=== PATIENT | male | born 2000 | race Caucasian/White ===

== ENCOUNTER 2021-06-09 12:37 | Inpatient (IN) | payer SELFPAY ==
[2021-06-09 12:49] VITALS: PULSE 85; RESP 18; TEMP 36.3; O2SAT 98; BMI 20.9
[2021-06-09 13:45] LABS: Basophils # 0.1 10^3/uL (0.0-0.1); Basophils % 0.7 %; Eosinophils % 0.4 %; Hematocrit 49.7 % (42.0-52.0); Hemoglobin 16.6 g/dL (11.7-16.6); Lymphocytes # 1.4 10^3/uL (0.8-4.8); Lymphocytes % 13.3 %; Mean Corpuscular HGB Conc 33.4 g/dL (30.0-36.0); Mean Corpuscular Hemoglobin 30.5 pg (28.0-34.0); Mean Corpuscular Volume 91.2 fl (80-94); Mean Platelet Volume 10.1 fL (7.4-10.4); Monocytes # 0.8 10^3/uL (0.2-0.9); Monocytes % 7.5 %; Neutrophils # 8.05 10^3/uL (1.8-7.7); Neutrophils % 77.8 %; Nucleated Red Blood Cells % 0 %; Platelet Count 321 10^3/cmm (130-400); Red Blood Count 5.45 10^6/uL (4.1-5.3); Red Cell Distribution Width 12.8 % (12.1-15.1); White Blood Count 10.3 10^3/uL (4.0-10.0)
--- NOTE | 2021-06-09 14:08 | ED_ITS ---
HPI - Psych General: Chief Complaint: Psychiatric Symptoms Stated Complaint: SI Time Seen by Provider: 06/09/21 13:10 History of Present Illness: HPI Narrative: 20-year-old male presents emergency room with superficial lacerations on the left anterior forearm. He said he was drinking heavily last night had intent to harm himself when he cut himself did bleed some but is not break through the full-thickness of the skin does not require sutures. He has had multiple episodes of cutting in the past and is intermittently had suicidal ideation for some time he is never been hospitalized for is not currently on any medications. He denies any use of illicit drugs. Issue today was precipitated by his girlfriend having an ectopic which made him more depressed. MD complaint: suicidal ideation and feels depressed Onset (ago): hour(s) Duration: constant History of same: Yes Relieving factors: none Exacerbating factors: none Associated psychiatric symptoms: none Associated symptoms: Reports depression and suicidal ideation; Deny auditory hallucinations, visual hallucinations, delusions, homicidal ideation or racing thoughts Treatments prior to arrival: none If self harm: admits thoughts of self harm, has plan and has acted on plan Review of Systems Const: Denies: fever(s), chills, body aches, change in appetite, fatigue or malaise ENMT: Denies: throat pain, ear or mastoid pain, nasal discharge or nasal congestion Card: Denies: chest pain, edema, dyspnea on exertion or orthopnea Resp: Denies: dyspnea, productive cough or non-productive cough GI: Denies: abdominal pain, nausea, vomiting, hematemesis, coffee ground emesis, diarrhea, constipation, bloating, hematochezia or melena : Denies: flank pain, dysuria, urinary frequency or urinary urgency Skin/Breast: Denies: rash or pruritus Psych: Reports: depression and suicidal ideation; Denies: visual hallucinations, auditory hallucinations or homicidal ideation Physical Exam Const: COMMON NORMALS: no acute distress GENERAL APPEARANCE: cooperative and comfortable ORIENTATION/CONSCIOUSNESS: Yes awake, Yes oriented to person, Yes oriented to place and Yes oriented to time HENMT: COMMON NORMALS: normocephalic, atraumatic and hearing grossly normal bilaterally HEAD & SCALP: normocephalic and atraumatic Neck/C-Spine: COMMON NORMALS: no JVD Lymph: LYMPHATIC: no lymphadenopathy noted and no lymphedema noted Resp: COMMON NORMALS: normal respiratory effort, No retractions, No use of accessory muscles and clear to auscultation bilaterally AUSCULTATION: clear to auscultation bilaterally Cardio: COMMON NORMALS: no JVD, regular rate, regular rhythm and No murmurs present (Cardio) RATE: regular rate RHYTHM: regular rhythm GI: COMMON NORMALS: Soft to palpation and No hepatosplenomegaly present AUSCULTATION: Yes normoactive bowel sounds PALPATION: Yes Soft to palpation, No Tenderness to palpation present (GI), No Guarding due to palpation present (GI) and Yes No hepatosplenomegaly present Extremity: COMMON NORMALS: normal to inspection, capillary refill normal, no clubbing, cyanosis or edema, no calf tenderness and no pedal edema Neuro: SENSORIUM/ORIENTATION: Yes oriented to person, Yes oriented to place and Yes oriented to time Psych: THOUGHT CONTENT: No delusions Skin: COMMON NORMALS: no rashes or lesions noted GENERAL SKIN EXAM: no rashes or lesions noted Course Vital Signs: Vital signs: Vital Signs Temperature 97.4 F L 06/09/21 12:49 Pulse Rate 85 06/09/21 12:49 Respiratory Rate 18 06/09/21 12:49 Pulse Oximetry 98 06/09/21 12:49 MDM - Psych MDM Narrative: Medical decision making narrative: Superficial abrasions to the left forearm scars throughout the forearms from previous cutting. No gaping wounds the attempted incision by the patient from last night is not full- thickness not amenable to sutures. Discussed with Dr. Garcia will admit for suicidal ideation. Lab Data: Labs: Lab Results 06/09/21 06/09/21 06/09/21 Range/Units 13:30 13:30 13:30 WBC 10.3 H (4.0-10.0) 10^3/ uL RBC 5.45 H (4.1-5.3) 10^6/u L Hgb 16.6 (11.7-16.6) g/dL Hct 49.7 (42.0-52.0) % MCV 91.2 (80-94) fl MCH 30.5 (28.0-34.0) pg MCHC 33.4 (30.0-36.0) g/dL RDW 12.8 (12.1-15.1) % Plt Count 321 (130-400) 10^3/c mm MPV 10.1 (7.4-10.4) fL Neut % (Auto) 77.8 % Lymph % (Auto) 13.3 % Williamson % (Auto) 7.5 % Eos % (Auto) 0.4 % Baso % (Auto) 0.7 % Neut # (Auto) 8.05 H (1.8-7.7) 10^3/u L Lymph # (Auto) 1.4 (0.8-4.8) 10^3/u L Williamson # (Auto) 0.8 (0.2-0.9) 10^3/u L Eos # (Auto) 0.0 (0.0-0.8) 10^3/u L Baso # (Auto) 0.1 (0.0-0.1) 10^3/u L Nucleated RBC % (a uto) 0 % Nucleated RBCs # 0.0 /100WBC Sodium 140 (136-145) mmol/L Potassium 4.0 (3.5-5.1) mmol/L Chloride 103 (98-107) mmol/L Carbon Dioxide 27 (22-29) mmol/L Anion Gap 14.0 (5-19) BUN 7 (6-20) mg/dL Creatinine 0.8 (0.7-1.2) mg/dL GFR Calculation 122.0 (90-130) mL/min Glucose 90 (65-115) mg/dL Calculated Osmolal ity 288 (285-295) mOsm/k g Calcium 9.6 (8.5-10.5) mg/dL Total Bilirubin 0.3 (0.15-1.2) mg/dL AST 14 (0-40) U/L ALT 8 (0-41) U/L Alkaline Phosphata se 160 H (40-130) IU/L Total Protein 7.6 (6.6-8.7) g/dL Albumin 4.7 (3.5-5.2) g/dL Globulin 2.9 (1.3-4.6) g/dL Urine Color Straw (Yellow) Urine Appearance Hazy A (CLEAR) Urine pH 8 H (5-7) Ur Specific Gravit y 1.015 (1.005-1.030) Urine Protein Neg (Negative) Urine Glucose (UA) Norm (Normal) Urine Ketones Negative (Negative) Urine Blood Neg (Negative) Urine Nitrate Negative (Negative) Urine Bilirubin Neg (Negative) Prot Sulfosalicyli c Acd Negative (Negative) Urine Urobilinogen Norm (Negative) mg/dL Ur Leukocyte Arianna ase Negative (Negative) Urine RBC None (0-2) /hpf Urine WBC 0-4 H (0-5) /hpf Ur Squamous Epith Cells None (0-5) /hpf Amorphous Sediment 3+ /hpf Urine Bacteria Trace (NONE) /hpf Salicylates < 0.3 L (3-10) mg/dL Urine Opiates Scre en (Negative) ng/mL Acetaminophen < 5.0 L (10-30) ug/mL Ur Barbiturates Sc reen (Negative) ng/mL Ur Phencyclidine S crn (Negative) ng/mL Ur Amphetamines Sc reen (Negative) ng/mL U Benzodiazepines Scrn (Negative) ng/mL Urine Cocaine Scre en (Negative) ng/mL U Marijuana (THC) Screen (Negative) ng/mL 06/09/21 Range/Units 13:30 WBC (4.0-10.0) 10^3/ uL RBC (4.1-5.3) 10^6/u L Hgb (11.7-16.6) g/dL Hct (42.0-52.0) % MCV (80-94) fl MCH (28.0-34.0) pg MCHC (30.0-36.0) g/dL RDW (12.1-15.1) % Plt Count (130-400) 10^3/c mm MPV (7.4-10.4) fL Neut % (Auto) % Lymph % (Auto) % Williamson % (Auto) % Eos % (Auto) % Baso % (Auto) % Neut # (Auto) (1.8-7.7) 10^3/u L Lymph # (Auto) (0.8-4.8) 10^3/u L Williamson # (Auto) (0.2-0.9) 10^3/u L Eos # (Auto) (0.0-0.8) 10^3/u L Baso # (Auto) (0.0-0.1) 10^3/u L Nucleated RBC % (a uto) % Nucleated RBCs # /100WBC Sodium (136-145) mmol/L Potassium (3.5-5.1) mmol/L Chloride (98-107) mmol/L Carbon Dioxide (22-29) mmol/L Anion Gap (5-19) BUN (6-20) mg/dL Creatinine (0.7-1.2) mg/dL GFR Calculation (90-130) mL/min Glucose (65-115) mg/dL Calculated Osmolal ity (285-295) mOsm/k g Calcium (8.5-10.5) mg/dL Total Bilirubin (0.15-1.2) mg/dL AST (0-40) U/L ALT (0-41) U/L Alkaline Phosphata se (40-130) IU/L Total Protein (6.6-8.7) g/dL Albumin (3.5-5.2) g/dL Globulin (1.3-4.6) g/dL Urine Color (Yellow) Urine Appearance (CLEAR) Urine pH (5-7) Ur Specific Gravit y (1.005-1.030) Urine Protein (Negative) Urine Glucose (UA) (Normal) Urine Ketones (Negative) Urine Blood (Negative) Urine Nitrate (Negative) Urine Bilirubin (Negative) Prot Sulfosalicyli c Acd (Negative) Urine Urobilinogen (Negative) mg/dL Ur Leukocyte Arianna ase (Negative) Urine RBC (0-2) /hpf Urine WBC (0-5) /hpf Ur Squamous Epith Cells (0-5) /hpf Amorphous Sediment /hpf Urine Bacteria (NONE) /hpf Salicylates (3-10) mg/dL Urine Opiates Scre en Negative (Negative) ng/mL Acetaminophen (10-30) ug/mL Ur Barbiturates Sc reen Negative (Negative) ng/mL Ur Phencyclidine S crn Negative (Negative) ng/mL Ur Amphetamines Sc reen Negative (Negative) ng/mL U Benzodiazepines Scrn Negative (Negative) ng/mL Urine Cocaine Scre en Negative (Negative) ng/mL U Marijuana (THC) Screen Positive H (Negative) ng/mL Discharge Plan Discharge Patient Disposition: Admitted As Inpatient Admit Provider: Walter Garcia Clinical Impression: Suicidal ideation, Depression Condition: Stable Coding Level of Care Code ED Card Scraper for Chg Fwd Exam Comprehensive
[2021-06-09 14:12] LABS: Amphetamines Screen Urine Negative (Negative); Barbiturates Screen Urine Negative (Negative); Benzodiazepines Screen Urine Negative (Negative); Cocaine Screen Urine Negative (Negative); Opiate Screen Urine Negative (Negative); PCP Screen Urine Negative (Negative); THC Screen Urine Positive (Negative)
[2021-06-09 14:13] LABS: Add Urine Microscopic? YES; Alanine Aminotransferase 8 U/L (0-41); Albumin Level 4.7 g/dL (3.5-5.2); Alkaline Phosphatase 160 IU/L (40-130); Aspartate Amino Transferase 14 U/L (0-40); Bacteria Urine TRACE /hpf; Bilirubin Urine Neg (Negative); Blood Urea Nitrogen 7 mg/dL (6-20); Blood Urine Neg (Negative); Calcium 9.6 mg/dL (8.5-10.5); Carbon Dioxide 27 mmol/L (22-29); Chloride 103 mmol/L (98-107); Creatinine Clr Calc Pharmacy 149.5673; Globulin 2.9 g/dL (1.3-4.6); Glucose 90 mg/dL (65-115); Glucose Urine UA Norm (Normal); Ketones Urine Negative (Negative); Leukocyte Esterase Urine Negative (Negative); Nitrate Urine Negative (Negative); Osmolality Calculated 288 mOsm/kg (285-295); Protein Urine Neg (Negative); Sodium 140 mmol/L (136-145); Specific Gravity, Urine 1.015 (1.005-1.030); Sulfosalicylic Acid Urine Negative (Negative); Total Bilirubin 0.3 mg/dL (0.15-1.2); Total Protein 7.6 g/dL (6.6-8.7); Urine Appearance Hazy (CLEAR); Urine Color Straw (Yellow); Urobilinogen Urine Norm (Negative); WBC Urine 0-4 /hpf (0-5); pH Urine 8 (5-7)
[2021-06-09 14:14] LABS: Add Urine Culture? No; Amorphous Sediment Urine 3+ /hpf
[2021-06-09 14:15] LABS: Acetaminophen < 5.0 ug/mL (10-30); Salicylate < 0.3 mg/dL (3-10)
[2021-06-09 15:55] VITALS: BP 171/107; PULSE 86; RESP 18; TEMP 36.2; O2SAT 98
[2021-06-09 16:53] VITALS: BP 171/107
[2021-06-09] MEDS: cloNIDine 0.1 mg Tablet PO (16:53)
[2021-06-09 20:55] VITALS: BP 137/84; PULSE 73; RESP 17; TEMP 36.4; O2SAT 99
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
[2021-06-10 06:00] VITALS: BP 132/93; PULSE 75; RESP 18; TEMP 36.6; O2SAT 99
[2021-06-10 10:18] VITALS: BP 132/93
[2021-06-10] MEDS: cloNIDine 0.1 mg Tablet PO ×2 (10:18→17:37)
[2021-06-10 14:00] VITALS: BP 143/95; PULSE 74; RESP 18; TEMP 36.3; O2SAT 99
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
[2021-06-10 17:37] VITALS: BP 143/95
[2021-06-10] MEDS: fluoxetine 20 mg Capsule PO (18:15)
[2021-06-10] MEDS: lamoTRIgine 25 mg Tablet PO (18:15)
[2021-06-10 22:00] VITALS: BP 130/84; PULSE 111; RESP 18; TEMP 36.7; O2SAT 96
[2021-06-11 06:00] VITALS: BP 131/79; PULSE 84; RESP 18; TEMP 36.9; O2SAT 97
[2021-06-11] MEDS: cloNIDine 0.1 mg Tablet PO ×2 (08:56→21:17)
[2021-06-11] MEDS: lamoTRIgine 25 mg Tablet PO (08:56)
[2021-06-11] MEDS: fluoxetine 20 mg Capsule PO (08:56)
--- NOTE | 2021-06-11 10:09 | P.PN_ITS ---
Subjective NPU Subjective: Interval history: I met with the patient in his room, and he began with rapid speech about his girlfriend and his father being a good support system. He says that he and his girlfriend rarely argue and that after discharge he will return to the home they share. He states that the Prozac and Lamictal that he was given yesterday caused him to have trouble sleeping. He says that he believes the medications will help him and that after discharge he plans to utilize counseling services and continue his medications. He says he would like to be out by so he can return to work but says he is committed to staying until the physician believes he is ready to go home. <ENEDINA Gomez STDNT - Last Filed: 06/11/21 11:37> Interval history: Pt tells me a slightly different story. He says that he and his girlfriend have conflicts, but the are working it out. He says that he slept off and on last night, but says he slept much of the day, so he might not have been as tired. Mood is better than it has been in a while. Denies urge to or kill himself. No medication side effects. <Walter Garcia MD - Last Filed: 06/12/21 08:08> Mental Status Exam MSE Comments: I met with the patient in his room, and he was dressed in hospital scrubs and appropriately groomed. He was calm, cooperative, interactive, and made good eye contact. No psychomotor agitation or retardation Speech is still pressured with normal volume and good articulation. Alert, oriented to person, place, time, situation Attention and concentration were intact to exam Memory is adequate for the interview Mood is fine . Affect is anxious. Thought process is logical and goal-directed. Thought content: The patient denies suicidal ideation, homicidal ideation, paranoia, and AVH. Insight and judgment are fair. Impulse control continues to be impaired. <ENEDINA Gomez STDNT - Last Filed: 06/11/21 11:37> Agree with above. <Walter Garcia MD - Last Filed: 06/12/21 08:08> Vitals/I&O/Wt Last Vital Signs Temp 98.4 F 06/11/21 06:00 Pulse 84 06/11/21 06:00 Resp 18 06/11/21 06:00 BP 131/79 06/11/21 06:00 Pulse Ox 97 06/11/21 06:00 <ENEDINA Gomez STDNT - Last Filed: 06/11/21 11:37> Weight last 48 hrs Weight 68.039 kg <Matias Grant MED STDNT - Last Filed: 06/11/21 11:37> Data NPU : 06/09/21 13:30 06/09/21 13:30 <Matias Grant MED STDNT - Last Filed: 06/11/21 11:37> A&P Assessment and plan (1) Alcohol use disorder, mild, abuse: Status: Acute <Matias Grant MED STDNT - Last Filed: 06/11/21 11:37> (2) Suicidal ideation: Status: Acute <Matias Grant MED STDNT - Last Filed: 06/11/21 11:37> (3) Depression: Status: Acute <Matias Grant MED STDNT - Last Filed: 06/11/21 11:37> Additional A&P Information Assessment and plan 1)Depression Continue Prozac 20mg and Lamictal 25mg 2)Suicidal ideation 3)Alcohol use disorder, mild, abuse Best Burch is a 20-year-old male who presented through the ER for a deep vertical cut to the left forearm and suicidal ideation. RECOMMENDATION AND PLAN: 1. We will continue Prozac and Lamictal. 2. Continue every 15 minute checks for safety. 3. Encourage individual, group and milieu therapies. 4. Encourage sober living treatment after discharge at the highest level of care to which he is willing to commit. <ENEDINA Gomez STDNT - Last Filed: 06/11/21 11:37> Agree with Assessment and Plan. <Walter Garcia MD - Last Filed: 06/12/21 08:08> Involuntary Hold Information 96 Hour Hold: 96 Hour Involuntary Admission: No <ENEDINA Gomez STDNT - Last Filed: 06/11/21 11:37> Attestations NPU Medical Necessity Statement*: . <Matias Grant MED STDNT - Last Filed: 06/11/21 11:37> Psychiatric hospitalization is medically necessary to prevent access to lethal means, to reevaluate medication, and to coordinate a safe discharge. May discharge tomorrow if he continues to make the same progress and is still tolerating medication. Will need follow up through [facility]. <Walter Garcia MD - Last Filed: 06/12/21 08:08> Coding Level of Care Code Acute Air Crew Member for [facility] Fwd Diagnoses Alcohol use disorder, mild, abuse F10.10 Suicidal ideation R45.851 Depression F32.9
[2021-06-11 14:00] VITALS: BP 143/75; PULSE 86; RESP 18; TEMP 36.3; O2SAT 99
[2021-06-11 19:56] VITALS: BP 132/85; PULSE 70; RESP 20; TEMP 36.9; O2SAT 100
[2021-06-11 21:17] VITALS: BP 132/85
[2021-06-12 06:00] VITALS: BP 121/80; PULSE 82; RESP 17; TEMP 36.6; O2SAT 99
[2021-06-12] MEDS: cloNIDine 0.1 mg Tablet PO (08:30)
[2021-06-12] MEDS: fluoxetine 20 mg Capsule PO (08:30)
[2021-06-12] MEDS: lamoTRIgine 25 mg Tablet PO (08:30)
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
[2021-06-12 13:21] VITALS: BP 121/80; PULSE 82; RESP 17; TEMP 36.6; O2SAT 99
[2021-06-12 13:52] VITALS: BP 139/89; PULSE 66; RESP 20; TEMP 36.7; O2SAT 99
== END 2021-06-12 15:34 | disposition home or self-care (01) | DRG 885 ==
LOC: ER 14:10 → NP 06-10 08:33
PROVIDERS: Admitting Provider Psychiatry & Neurology Child & Adolescent Psychiatry; Emergency Provider Family Medicine; PCP Pediatrics; Visit Provider Psychiatry & Neurology Child & Adolescent Psychiatry
DX: F31.9 Bipolar disorder, unspecified (principal); R45.851 Suicidal ideations; F12.90 Cannabis use, unspecified, uncomplicated; Z81.8 Family history of other mental and behavioral disorders; F10.10 Alcohol abuse, uncomplicated; F41.9 Anxiety disorder, unspecified; F17.210 Nicotine dependence, cigarettes, uncomplicated
CPT/HCPCS: 80053; 80306; 80307; 81001; 85025; 99285

== ENCOUNTER → 2021-06-23 15:55 | Outpatient (BNVA) | payer OTHER, SELFPAY | PROVIDERS: PCP Pediatrics; Visit Provider Nurse Practitioner Family | DX: Z20.822 Contact with and (suspected) exposure to COVID-19 (principal) | CPT/HCPCS: 87635 ==

== ENCOUNTER 2023-09-16 15:22 | Emergency (ER) | payer SELFPAY ==
[2023-09-16 15:28] VITALS: BP 185/83; PULSE 93; RESP 18; TEMP 36.7; O2SAT 100; BMI 25.7
--- NOTE | 2023-09-16 15:44 | ED_ITS ---
HPI - Abdominal Pain 2 General: Chief Complaint: Abdominal Pain Stated Complaint: abd pain, Diarrhea Time Seen by Provider: 09/16/23 15:33 History of Present Illness: 22-year-old male presents emergency room complaining of stomach upset nausea diarrhea cramping occasional blood in the stools for the last several days. Has had some mucousy stools as well no hematemesis no fever no dysuria urgency or frequency Associated Symptoms: Denies chills, dysuria and fever(s) Review of Systems 2 Const: Denies: fever(s) or chills Card: Denies: chest pain Resp: Denies: dyspnea GI: Denies: abdominal pain : Denies: dysuria, urinary frequency or urinary urgency Musc: Denies: neck pain or back pain Skin/Breast: Denies: rash PFSH ED 2 PFSH: Medical History DMDD (disruptive mood dysregulation disorder) Physical Exam 2 Const: COMMON NORMALS: no acute distress GENERAL APPEARANCE: cooperative and comfortable ORIENTATION/CONSCIOUSNESS: Yes awake, Yes oriented to person, Yes oriented to place and Yes oriented to time HENMT: COMMON NORMALS: normocephalic, atraumatic and hearing grossly normal bilaterally HEAD & SCALP: normocephalic and atraumatic Resp: COMMON NORMALS: normal respiratory effort, No retractions, No use of accessory muscles and clear to auscultation bilaterally AUSCULTATION: clear to auscultation bilaterally Cardio: COMMON NORMALS: regular rate, regular rhythm and No murmurs present (Cardio) RATE: regular rate RHYTHM: regular rhythm GI: COMMON NORMALS: Soft to palpation and No hepatosplenomegaly present A USCULTATION: Yes normoactive bowel sounds PALPATION: Yes Soft to palpation, No Tenderness to palpation present (GI), No Guarding due to palpation present (GI) and Yes No hepatosplenomegaly present Extremity: COMMON NORMALS: normal to inspection, capillary refill normal, no clubbing, cyanosis or edema, no calf tenderness and no pedal edema Neuro: SENSORIUM/ORIENTATION: Yes oriented to person, Yes oriented to place and Yes oriented to time Skin: COMMON NORMALS: no rashes or lesions noted GENERAL SKIN EXAM: no rashes or lesions noted Course 2 Vital Signs: Vital signs: Vital Signs Temperature 98.0 F 09/16/23 15:28 Pulse Rate 74 09/16/23 17:00 Respiratory Rate 18 09/16/23 16:15 Blood Pressure 164/77 09/16/23 17:00 Pulse Oximetry 98 09/16/23 17:00 Oxygen Delivery Me thod Room Air 09/16/23 17:00 MDM - Abdominal Pain Medical Decision Making Patient is reporting some blood is not of acute abdomen white count is normal. Will put him on Cipro and Flagyl and have him follow-up with his primary care doctor for consideration of further evaluation including possible colonoscopy return if is further problems. Should do clear liquid diet for the next 24 to 48 hours and advance as tolerated started on Cipro and Flagyl. Medical Records I reviewed the patient's medical records. Lab Data I reviewed the patient's lab results. 09/16/23 15:55 09/16/23 15:55 Labs/Radiology: Laboratory Results WBC 7.89 10^3/uL (3.29-11.43) 09/16/23 15:55 RBC 4.84 10^6/uL (3.85-5.65) 09/16/23 15:55 Hgb 14.70 g/dL (11.27-16.99) 09/16/23 15:55 Hct 43.1 % (37-53) 09/16/23 15:55 MCV 89.0 fl (82-101) 09/16/23 15:55 MCH 30.4 pg (27-33) 09/16/23 15:55 MCHC 34.1 g/dL (30-55) 09/16/23 15:55 RDW 13.1 % (12.1-15.1) 09/16/23 15:55 Plt Count 235 10^3/cmm (157-399) 09/16/23 15:55 MPV 9.8 fL (7.4-10.4) 09/16/23 15:55 Neut % (Auto) 61.6 % 09/16/23 15:55 Lymph % (Auto) 25.2 % 09/16/23 15:55 Blount % (Auto) 10.0 % 09/16/23 15:55 Eos % (Auto) 2.4 % 09/16/23 15:55 Baso % (Auto) 0.5 % 09/16/23 15:55 Neut # (Auto) 4.86 10^3/uL (1.8-7.7) 09/16/23 15:55 Lymph # (Auto) 2.0 10^3/uL (0.8-4.8) 09/16/23 15:55 Blount # (Auto) 0.8 10^3/uL (0.2-0.9) 09/16/23 15:55 Eos # (Auto) 0.2 10^3/uL (0.0-0.8) 09/16/23 15:55 Baso # (Auto) 0.0 10^3/uL (0.0-0.1) 09/16/23 15:55 Nucleated RBC % (auto) 0 % 09/16/23 15:55 Nucleated RBCs # 0.0 /100WBC 09/16/23 15:55 Sodium 142 mmol/L (136-145) 09/16/23 15:55 Potassium 3.7 mmol/L (3.5-5.1) 09/16/23 15:55 Chloride 108 mmol/L (98-107) H 09/16/23 15:55 Carbon Dioxide 22 mmol/L (22-29) 09/16/23 15:55 Anion Gap 15.7 (5-19) 09/16/23 15:55 BUN 9 mg/dL (6-20) 09/16/23 15:55 Creatinine 0.9 mg/dL (0.7-1.2) 09/16/23 15:55 GFR Calculation 104.6 mL/min (90-130) 09/16/23 15:55 Glucose 104 mg/dL (65-115) 09/16/23 15:55 Calculated Osmolality 293 mOsm/kg (285-295) 09/16/23 15:55 Calcium 9.4 mg/dL (8.5-10.5) 09/16/23 15:55 Total Bilirubin 0.2 mg/dL (0.15-1.2) 09/16/23 15:55 AST 15 U/L (0-40) 09/16/23 15:55 ALT 22 U/L (0-41) 09/16/23 15:55 Alkaline Phosphatase 111 U/L (40-130) 09/16/23 15:55 Total Protein 7.3 g/dL (6.6-8.7) 09/16/23 15:55 Albumin 4.3 g/dL (3.5-5.2) 09/16/23 15:55 Globulin 3.0 g/dL (1.3-4.6) 09/16/23 15:55 Urine Color Yellow (Yellow) 09/16/23 16:57 Urine Appearance Clear (CLEAR) 09/16/23 16:57 Urine pH 6 (5-7) 09/16/23 16:57 Ur Specific [place] 1.030 (1.005-1.030) 09/16/23 16:57 Urine Protein Neg (Negative) 09/16/23 16:57 Urine Glucose (UA) Norm (Normal) 09/16/23 16:57 Urine Ketones Negative (Negative) 09/16/23 16:57 Urine Blood Neg (Negative) 09/16/23 16:57 Urine Nitrate Negative (Negative) 09/16/23 16:57 Urine Bilirubin Neg (Negative) 09/16/23 16:57 Urine Urobilinogen Norm mg/dL (Negative) 09/16/23 16:57 Ur Leukocyte Esterase Negative (Negative) 09/16/23 16:57 All radiology interpretation(s) finalized by discharge Discharge Plan Discharge Patient Disposition: Home Clinical Impression: Colitis Condition: Stable Prescriptions: New Cipro 500 mg tablet 500 mg PO BID Qty: 14 0RF metronidazole 500 mg tablet 500 mg PO BID 7 Days Qty: 14 0RF ondansetron HCl 4 mg tablet 4 mg PO Q6H PRN (Reason: nausea and vomiting) Qty: 20 0RF No Action clonidine HCl 0.1 mg Tablet 0.1 mg PO 0900,2100 30 Days Qty: 60 1RF lamotrigine 25 mg Tablet 25 mg PO DAILY 30 Days Qty: 30 1RF fluoxetine 20 mg Capsule 20 mg PO DAILY 30 Days Qty: 30 1RF Discharge Orders: Discharge ED (Routine); Ordered 09/16/23 Ordered By: Rene Yadav Referrals: Daquan Albarado MD [Primary Care Provider] - Discharge Diet: Clear Liquid Discharge Activity: Increase activity as tolerated Patient Instructions: Opioid Safety, Pain Management Coding Level of Care Code ED Outreach Rep for Joelle Lopez
[2023-09-16 16:00] LABS: Basophils % 0.5 %; Eosinophils # 0.2 10^3/uL (0.0-0.8); Eosinophils % 2.4 %; Hematocrit 43.1 % (37-53); Lymphocytes % 25.2 %; Mean Corpuscular HGB Conc 34.1 g/dL (30-55); Mean Corpuscular Hemoglobin 30.4 pg (27-33); Mean Platelet Volume 9.8 fL (7.4-10.4); Monocytes # 0.8 10^3/uL (0.2-0.9); Neutrophils # 4.86 10^3/uL (1.8-7.7); Neutrophils % 61.6 %; Nucleated Red Blood Cells % 0 %; Platelet Count 235 10^3/cmm (157-399); Red Blood Count 4.84 10^6/uL (3.85-5.65); Red Cell Distribution Width 13.1 % (12.1-15.1); White Blood Count 7.89 10^3/uL (3.29-11.43)
[2023-09-16] MEDS: sodium chloride 0.9% 1,000 ML 999 ML IV (16:14)
[2023-09-16] MEDS: ondansetron 2 mg/ML SDV 2 mL 4 MG IVP (16:14)
[2023-09-16 16:15] VITALS: BP 183/89; PULSE 93; RESP 18; O2SAT 100
[2023-09-16 16:16] LABS: Alanine Aminotransferase 22 U/L (0-41); Albumin Level 4.3 g/dL (3.5-5.2); Alkaline Phosphatase 111 U/L (40-130); Anion Gap 15.7 (5-19); Aspartate Amino Transferase 15 U/L (0-40); Blood Urea Nitrogen 9 mg/dL (6-20); Calcium 9.4 mg/dL (8.5-10.5); Carbon Dioxide 22 mmol/L (22-29); Chloride 108 mmol/L (98-107); Creatinine Clr Calc Pharmacy 142.1803; Glomerular Filtration Rate 104.6 mL/min (90-130); Glucose 104 mg/dL (65-115); Osmolality Calculated 293 mOsm/kg (285-295); Potassium 3.7 mmol/L (3.5-5.1); Sodium 142 mmol/L (136-145); Total Bilirubin 0.2 mg/dL (0.15-1.2); Total Protein 7.3 g/dL (6.6-8.7)
[2023-09-16 17:00] VITALS: BP 164/77; PULSE 74; O2SAT 98
[2023-09-16 17:09] LABS: Add Urine Microscopic? NO; Charge for UA Resulting for Rev
[2023-09-16 17:16] LABS: Urine Appearance Clear (CLEAR); Urine Color Yellow (Yellow); pH Urine 6 (5-7)
[2023-09-16 17:17] LABS: Bilirubin Urine Neg (Negative); Blood Urine Neg (Negative); Glucose Urine UA Norm (Normal); Ketones Urine Negative (Negative); Leukocyte Esterase Urine Negative (Negative); Nitrate Urine Negative (Negative); Protein Urine Neg (Negative); Urobilinogen Urine Norm (Negative)
[2023-09-16 18:31] VITALS: BP 133/61; PULSE 89; O2SAT 99
== END 2023-09-16 18:32 | disposition home or self-care (01) ==
PROVIDERS: Emergency Provider Family Medicine; PCP Pediatrics
DX: K52.9 Noninfective gastroenteritis and colitis, unspecified (principal)
CPT/HCPCS: 36415; 80053; 81003; 85025; 96374; 99284; J2405; J7030